=== PATIENT | male | born 1945 | race African-American/Black ===

== ENCOUNTER 2022-02-27 04:47 | Emergency (ER) | payer MEDICARE, BC ==
[~2022-02-27] VITALS: Ht 177.8 cm; Wt 69.4 kg
--- NOTE | 2022-02-27 04:55 | NUR ---
ALLY FROM [facility] C/O FEELING WEAK FOR THE LAST 3 DAYS WOKE UP THIS MORNING X 1 HR AGO FELT WEAKER. PT A/OX4. TOLERATING R/A WELL WITH NO RESP DISTRESS. CONNECTED PT TO POX AND MONITOR. SAFETY MEASURES IN PLACE.
--- NOTE | 2022-02-27 05:14 | NUR ---
EMT AT PT'S BEDSIDE FOR EKG
--- NOTE | 2022-02-27 05:15 | NUR ---
RAC #20G S/L BLOOD COLLECTED AND SENT TO LAB. PROVIDED PT WITH URINAL; AWAITING URINE SAMPLE.
--- NOTE | 2022-02-27 05:19 | NUR ---
POC ACCUCHECK 170; DR. MIRZA DO AWARE
--- NOTE | 2022-02-27 05:21 | NUR ---
PT TAKEN TO CT VIA [facility]
--- NOTE | 2022-02-27 05:34 | NUR ---
PT RETURNED TO ER BED [address]
--- NOTE | 2022-02-27 05:36 | NUR ---
CROSSBAR FRAME WIRER AT PT'S BEDSIDE
[2022-02-27 05:40] LABS: CARBON DIOXIDE 29 mmol/L (21-32); CHLORIDE 105 mmol/L (98-107); CREATININE 1.6 mg/dL (0.6-1.3); GLUCOSE 186 mg/dL (74-106); POTASSIUM 3.9 mmol/L (3.5-5.1); SODIUM SERUM 140 mmol/L (136-145); UREA NITROGEN, BLOOD 31 mg/dL (7-18)
[2022-02-27 05:45] LABS: ALANINE AMINOTRANSFERASE 21 U/L (12-78); ALBUMIN 3.6 g/dL (3.4-5.0); ALKALINE PHOSPHATASE 100 U/L (46-116); ASPARTATE AMINOTRANSFERASE 16 U/L (15-37); BASOPHILS % (AUTO) 0.1 % (0.0-2.0); BILIRUBIN,DIRECT 0.1 mg/dL (0.0-0.2); BILIRUBIN,TOTAL 0.3 mg/dL (0.2-1.0); EOSINOPHILS % (AUTO) 0.1 % (0.0-6.0); HEMATOCRIT 42 % (39-51); HEMOGLOBIN 13.9 g/dL (13.5-17.5); LYMPHOCYTES # (AUTO) 0.5 K/uL (0.8-4.8); MEAN CORPUSCULAR HGB CONC 34 g/dl (31.0-36.0); MEAN CORPUSCULAR VOLUME 86 fL (80-96); MONOCYTES # (AUTO) 0.3 K/uL (0.1-1.30); MONOCYTES % (AUTO) 3.9 % (2.0-12.0); NEUTROPHILS # (AUTO) 6.2 K/uL (1.8-8.9); NEUTROPHILS % (AUTO) 88.9 % (43.0-81.0); PLATELET COUNT (AUTO) 173 K/uL (150-450); RED BLOOD CELL COUNT(AUTO) 4.84 MIL/uL (4.5-6.0); TOTAL PROTEIN, SERUM 7.2 g/dL (6.4-8.2); WHITE BLOOD COUNT (AUTO) 6.9 K/uL (4.3-11.0)
--- NOTE | 2022-02-27 05:47 | NUR ---
URINE COLLECTED AND SENT TO LAB
[2022-02-27 06:51] LABS: BILIRUBIN,URINE NEGATIVE (NEGATIVE); COLOR,URINE YELLOW (YELLOW); LEUKOCYTE ESTERASE ,URINE TRACE (NEGATIVE); NITRITE, URINE NEGATIVE (NEGATIVE); PH,URINE 6.5 (5.0-8.0); PROTEIN,URINE NEGATIVE (NEGATIVE); UGLUCOSE NEGATIVE (NEGATIVE); UROBILINOGEN,URINE 0.2 EU/dL (0.2)
[2022-02-27] MEDS ORDERED: ASPIRIN 81 MG TAB.CHEW PO ONE (07:00)
[2022-02-27] MEDS ORDERED: ASPIRIN 81 MG TAB.CHEW ONE (07:05)
[2022-02-27] MEDS ORDERED: IV NS 0.9% 1,000 ML IV ONE (08:30)
[2022-02-27 08:35] LABS: BACTERIA,URINE None seen /HPF (None Seen); RBC,URINE 0-2 /HPF (0-2); SQUAMOUS EPITHELIAL CELL,UR None Seen /HPF (None Seen)
[2022-02-27] MEDS ORDERED: CEPH500C2 PO (08:44)
--- NOTE | 2022-02-27 09:13 | NUR ---
CALLED [facility] FOR TRANSFORTATION , ETA 75-90 MIN .
--- NOTE | 2022-02-27 10:30 | NUR ---
report given to radha TREVINO of [facility]
--- NOTE | 2022-02-27 10:32 | NUR ---
IV removed. Catheter intact and site benign. Pressure and 4x4 applied to site. No bleeding noted. iv tag removed
--- NOTE | 2022-02-27 10:32 | NUR ---
Patient discharged to rescuer going to facility in stable condition. Written and verbal after care instructions given. Patient verbalizes understanding of instruction.
[2022-02-27 10:36] VITALS: BP 150/82
== END 2022-02-27 10:37 ==
LOC: EDBD 05:00 → ER 05:00
DX: R53.1 Weakness (principal); N39.0 Urinary tract infection, site not specified; R55 Syncope and collapse; E11.65 Type 2 diabetes mellitus with hyperglycemia; I10 Essential (primary) hypertension; Z20.822 Contact with and (suspected) exposure to COVID-19
CPT/HCPCS: 99285; 70450; 71045; 87426; 93005; 85025; 80048; 87086; 80076; 81001; 36415; 84484; 85730; 82962 ×2; 87081; J7030; C9803